=== PATIENT | male | born 1950 | race Asian ===

== ENCOUNTER 2021-01-17 07:21 | Outpatient (CLI) | payer MEDICARE ==
[2021-01-17] MEDS ORDERED: Iopamidol-370 76% 500 ML 1 ML ONE (10:31)
== END 2021-01-17 07:22 | disposition home or self-care (01) ==
LOC: BICCT 07:21 → EDSEX 07:21 → BICCT 07:22
PROVIDERS: ATTEND Internal Medicine Gastroenterology
DX: R10.13 Epigastric pain (principal); K76.0 Fatty (change of) liver, not elsewhere classified; I25.10 Atherosclerotic heart disease of native coronary artery without angina pectoris; I70.0 Atherosclerosis of aorta; I70.8 Atherosclerosis of other arteries; Z86.010 Personal history of colon polyps; Z90.49 Acquired absence of other specified parts of digestive tract
CPT/HCPCS: 74177; 82565; Q9967